=== PATIENT | male | born 1990 | race Two or more races ===

== ENCOUNTER 2020-01-23 17:24 | Emergency (ER) | payer SELFPAY ==
[~2020-01-23] VITALS: Ht 170.2 cm; Wt 91.0 kg
[2020-01-23 17:42] VITALS: BP 148/101
[2020-01-23] MEDS ORDERED: IBUPROFEN 600MG TABLET PO ONE (19:45)
[2020-01-23] MEDS ORDERED: SULFAMETHOXAZOLE/TRIMETHOPRIM 800/160MG TABLET PO ONE (19:45)
[2020-01-23] MEDS ORDERED: CEPHALEXIN 250MG CAPSULE PO ONE (19:45)
== END 2020-01-23 20:16 | disposition home or self-care (01) ==
LOC: ER 17:24
DX: L03.116 Cellulitis of left lower limb (principal); B35.3 Tinea pedis; N50.819 Testicular pain, unspecified
CPT/HCPCS: 99284

== ENCOUNTER 2020-02-04 18:32 | Emergency (ER) | payer SELFPAY ==
[~2020-02-04] VITALS: Ht 170.2 cm; Wt 86.0 kg
[2020-02-04 19:18] VITALS: BP 179/107
== END 2020-02-04 19:19 | disposition home or self-care (01) ==
LOC: ER 18:32
DX: L03.314 Cellulitis of groin (principal)
CPT/HCPCS: 99281